=== PATIENT | male | born 1960 | race Caucasian/White ===

== ENCOUNTER 2025-01-29 16:12 | Observation (INO) | payer OTHER, SELFPAY ==
[2025-01-29] VITALS (11 sets, daily range): BP systolic 126–146; BP diastolic 72–85; BMI 26.7; BMI 26.0
--- NOTE | 2025-01-29 10:27 | ED.GENMED ---
History of Present Illness
General
Chief Complaint: Headache
Source: patient
Exam Limitations: none
Time Seen by Provider: 01/29/25 10:05
Nursing documentation reviewed up to this point in time: agreed with
History of Present Illness
History of Present Illness:
64-year-old male with a history of newly diagnosed hyperlipidemia presents for headache that was noticed after he woke up this morning at 6:30 AM. Patient says he noticed it soon after waking up but had not gotten out of bed yet. It was mild 3 out
of 10 pain. [place] like a throbbing or dull headache. It was mostly left-sided behind his eye into his scalpf/frontal region and in the back of his head.
He may have had a little bit of nausea but that was brief. He has had a little bit of congestion feeling in his left maxillary sinus region. He is otherwise not having any cold symptoms. Patient does not get headaches usually so this was unusual.
He did take 2 Advil at 7:30 AM which has not changed his headache. It is currently a 5 out of 10. He was able to exercise on the elliptical and lifts weights without it feeling worse but it did not go away and that is why he is here. Patient's
noticed that hit the vein on his forehead looks like it was sticking out however he is not having any tenderness to this region, there is no blurred vision, scalp sensitivity, fatigue with chewing. Patient has not had a fever. He has no
numbness tingling or weakness in his face arms or legs. Patient has had his shingles vaccine but never had shingles. There is no family history of a brain aneurysm. He is not having any positional changes with this headache for dizziness
Past History
Past History
ED Past Medical History: Hypercholesterolemia
ED Past Surgical History: None
Social History
Tobacco: Non-smoker
Alcohol: Occasional
Drug: None
Personal:
Living: with family
Employment: Employed
Review of Systems
Review of Systems
Allergies reviewed?: Yes
All Other Systems: Not applicable
Phy Exam
Physical Exam
Physical Exam:
GENERAL: Alert , in no apparent distress
HEAD: NCAT
There is a lateral frontal vein that is slightly prominent which is completely nontender but above the vein there is a few small erythematous papules that are also not tender just anterior to the scalp line
EYE: pupils equal and reactive, no nystagmus, no photophobia
NECK: Supple,full rom, nontender
ENT: o/p clr, mmm.
CARDIAC: Regular rate and rhythm . no edema
LUNGS: Clear breath sounds bilaterally, no acute respiratory distress, no wheezes/rales/rhonchi
ABDOMEN: Soft, without focal tenderness, no r/g, no cvat
NEUROLOGICAL: Alert and orientedx 4, cn intact, no facial asymmetry, 5/5 strength in UE/LE, sensation intact, romberg neg, ambulates without assistance, neg pronator drift
SKIN: Warm and dry, skin intact.
MUSCULOSKELETAL: No edema, well perfused.
PSYCH: Normal and appropriate interaction.
Course
Orders/Labs/Results
Orders:
Orders
01/29/25 10:24
0.9% Sodium Chloride 500 ml [Nss] 500 ml IV BOLUS
Diphenhydramine [Benadryl] 25 mg IV NOW STA
01/29/25 10:25
CT Head W/o Iv Contrast Urgent
Comment:
Reason For Exam: headache left sided;
01/29/25 10:31
C-Reactive Protein Urgent
Comment: ADD
COVID-19 Antigen Urgent
Source: Nasal Swab
Complete Blood Count/With Diff Urgent
Comprehensive Metabolic Panel Urgent
Erythrocyte Sed Rate Urgent
Free T4 Urgent
Lyme Progressive Routine
Comment: ADD
Magnesium Urgent
Comment: ADD
TSH Urgent
Influenza A+B Rapid Molecular Urgent
[place] Source: Nasal Swab
Specimen Description:
01/29/25 10:45
Metoclopramide [Reglan] 10 mg 0.9% Sodium Chloride 50 ml [Nss] 50 ml IV NOW
01/29/25 11:52
CT Head & Neck Angio W/wo IV Urgent
Comment:
Reason For Exam: L
01/29/25 11:54
Add On- LAB Urgent
Tests Added?: crp, magnesium, lyme progressive
01/29/25 13:17
Consult Neurology [NEUROLOGY CONSULT] Urgent
Consulting Provider: Margarette Rees
Was physician already notified: Yes
01/29/25 13:28
Add On- LAB Urgent
Tests Added?: TSH reflex t4
01/29/25 13:53
Add On- LAB Routine
Comments:: Please add to today's labs or draw as routine
Tests Added?: TSH, free T4, magnesium, CRP
01/29/25 14:58
Ketorolac [Toradol] 15 mg IV NOW STA
01/29/25 14:59
Aspirin 325 mg PO NOW STA
01/29/25 15:56
Admit/Transfer Patient As Directed
Co-Sign Provider:
Level of Care: Observation services
Assign to:: Medical/Surgical
Physician / Group: Walker Covington
Diagnosis: hypoplasia of right vertebral artery, headache
PRN Pain Medication Management As Directed
May give lesser potent ordered pain med per pt: Yes
preference::
Protocol:: Medication orders for pain may be administered in a
manner that supports deferring to patient preference
when the pt is:
- Requesting an ordered lesser potent pain medication.
Least to most potent pain medications are defined
as: acetaminophen < NSAID < tramadol < opioids
(morphine, oxycodone, hydromorphone).
- Requesting a lesser dose of the same medication IF
ORDERED.
- Requesting a less intrusive route of administration
if both routes are prescribed by the provider (PO <
IV).
01/29/25 15:57
Code Status As Directed
Resuscitation Status: Full Code
Abnormal Lab Results
01/29/25
10:31
RBC 4.57 L 10^6/uL
(4.70-6.10)
Absolute Lymphs (auto) 1.0 L 10^3/uL
(1.2-3.4)
Neutrophils % 80.2 H %
(42.2-75.2)
Lymphocytes % 12.9 L %
(20.5-51.1)
BUN 23 H mg/dl
(9-20)
Glucose 116 H mg/dl
(70-99)
Total Bilirubin 1.7 H mg/dl
(0.2-1.3)
01/29/25 10:31
01/29/25 10:31
Vital Signs
Initial and Last Documented VS:
Initial Vital Signs
Temp Pulse Resp BP Pulse Ox
36.6 C 66 18 146/82 96
01/29/25 09:30 01/29/25 09:30 01/29/25 09:30 01/29/25 09:30 01/29/25 09:30
Last Documented Vital Signs
Temp Pulse Resp BP Pulse Ox
36.6 C 65 16 135/78 98
01/29/25 09:30 01/29/25 16:00 01/29/25 16:00 01/29/25 16:00 01/29/25 16:00
MDM/Problems Addressed
MDM/Problems Addressed:
64 y/o M newly dx coronary calcium study showing plaques so he is on statin 1 mo ago
otherwise healthy
woke up 630 am and soon after felt mild L sided headache, dull, around left eye and L forehead/yazdanism and occiput
maxium 5/10 pain, no associated symptoms
doesn't usually get headaches
no URI sxs
no scalp tenderness but noticed a swollen vein in his L forehead, no tenderness
no vision changes
took motrin and exercised, but pain not improved so he came in
well appearing
neuro intact
i do see a slightly enlarged L forehead vein without tendneress
there may be 2 papules int he forehead/scalp hair line but i can't convince myself it's shingles
sed rate 4
CT:
There is no CT evidence for acute transcortical infarct. There is a 6 mm chronic infarct in the left cerebellar hemisphere. There is a mild amount of low attenuation throughout the subcortical and periventricular white matter of both cerebral
hemispheres. 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 The left intracranial vertebral artery is tortuous causing mild compression on the ventral aspect of the medulla.
d/w dr. rees from neuro
recommemdned CTA which showed again the stenosis
he also has a segment in his R cerebral artery that is narrow
pt's headache unlikely to be related to this
incidentlly thyroid mass seen, pt is aware of this, had it biopsied and it is goiter
neurologist recommended admission, mri, asa, no plaivx
*Critical Care Note
Total Time (30-74mins, 75-104mins- exclusive of procedures): Not Applicable
ED Attending Note
-
Portions of this chart may have been created with voice recognition software.� Occasional wrong word or��sound alike� substitutions may have occurred due to the inherent limitations of voice recognition software.
Discharge Plan
Departure
Patient Disposition: Admit
Date of Disposition: 01/29/25
Time of Disposition: 14:50
Admit to: Telemetry
Presentation/result/management discussed w/ accepting MD/DO: Hospitalist
Condition: Fair
Covid-19: Not Applicable
Discharge Problem:
Headache, Stenosis of right vertebral artery
Interventions
Interventions:
*Risk Screen - Suicide Last Done: 01/29/25 09:30
*General Assessment Last Done: 01/29/25 09:30
*Neglect/Abuse Screening Last Done: 01/29/25 09:30
*ED- Fall Risk Assessment Last Done: 01/29/25 09:52
*ED COVID-19 Vaccine History Last Done: 01/29/25 09:52
ED- Neurological Assessment Last Done: 01/29/25 14:07
[2025-01-29 10:48] LABS: % Basophils 0.4 % (0-2); % Eosinophils 0.6 % (0-6); % Immature Granulocytes 0.3 % (0-0.5); % Lymphocytes 12.9 % (20.5-51.1); % Monocytes 5.6 % (1.7-9.3); % Neutrophils 80.2 % (42.2-75.2); Absolute Eosinophils 0.1 10^3/uL (0-0.7); Absolute Monocytes 0.5 10^3/uL (0.1-0.6); Absolute Neutrophils 6.4 10^3/uL (1.4-6.5); Hematocrit 40.4 % (39.0-52.0); Mean Corp Hgb Conc. 34.7 g/dL (33.0-37.0); Mean Corpuscular Hgb 30.6 pg (27.0-31.0); Mean Corpuscular Volume 88.4 fL (80.0-94.0); Mean Platelet Volume 9.4 fL (7.4-10.4); Nucleated Red Blood Cells % 0 % (-); Platelet Count 227 10^3/uL (130-400); Red Blood Cell Count 4.57 10^6/uL (4.70-6.10); Red Cell Dist. Width 13.1 % (11.5-14.5)
[2025-01-29 11:01] LABS: ALT (SGPT) 43 U/L (0-50); AST (SGOT) 28 U/L (17-59); Alkaline Phosphatase 77 U/L (38-126); Blood Urea Nitrogen 23 mg/dl (9-20); Calcium 9.4 mg/dl (8.4-10.2); Carbon Dioxide 26 mmol/L (22-30); Estimated Creatinine Clearance 95 ml/min; Glucose 116 mg/dl (70-99); Potassium 4.6 mmol/L (3.5-5.1); Sodium 136 mmol/L (135-145); Total Bilirubin 1.7 mg/dl (0.2-1.3); Total Protein 6.6 g/dl (6.3-8.2); eGFR > 60.00
[2025-01-29] MEDS: NSS 500 IV (11:17)
[2025-01-29] MEDS: BENADRYL 25 MG IV (11:17)
[2025-01-29] MEDS: REGLAN 52 MG IV (11:18)
[2025-01-29 11:20] LABS: Erythrocyte Sed Rate 4 mm/hour (0-20)
[2025-01-29 11:45] LABS: COVID-19 Antigen Negative (Negative)
[2025-01-29 11:50] LABS: Chloride 106 mmol/L (98-107)
--- NOTE | 2025-01-29 13:48 | CON.NEURO ---
Consultation
Order
Date of Consultation: 01/29/25
Requesting Provider: Jennifer Payne PA-C
Reason for Consult: Headache
Neurology Consultation Note.
HPI: This is a 64-year-old man who presented to [facility] on 01/29/2025 with headache.
According to the patient he woke up with mild to moderate nonpositional left retro-orbital dull headache. No associated anomic symptoms, head trauma, fever, diplopia, tinnitus, nausea, motor or sensory deficits.
The patient denied having jaw pain, ear pain, recent dental work or excessive caffeine use. Mr. Sanders reportedly took ibuprofen with no improvement prompting him to seek medical care. Mr. Whately recalls transient aphasia in his 30s that he had
unremarkable brain MRI for. No recently discontinued medications. The patient recently started taking Lipitor approximately 3 weeks ago.
ER VS: 146/82, 66, afebrile
EKG: Pending
PDMP: None
Labs: Glucose�116, total bili�1.7, normal sodium, WBCs, absolute neutrophil count�80.2%, normal ESR, negative SARS-CoV-[address] head wo contrast�chronic left cerebellar infarct, mild atrophy
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
PMH: DLP, left thyroid nodule
PSH:R TKA, thyroid biopsy
SH:; retired computer operations manager; non-smoker, drinks 3 beers or glasses of wine per week with dinner
FH: Father�coronary artery disease, mother in her 90s.
All:NKDA
ROS: Constitutional: Negative. Negative for chills, fever and unexpected weight change.
HENT: Negative for ear pain, hearing loss, tinnitus and trouble swallowing.
Eyes: Negative. Negative for photophobia, pain and visual disturbance.
Respiratory: Negative for cough, choking and shortness of breath.
Cardiovascular: Negative for chest pain, palpitations and leg swelling.
Gastrointestinal: Negative for abdominal pain and vomiting.
Endocrine: Negative. Negative for cold intolerance.
Genitourinary: Negative for dysuria, flank pain and urgency.
Musculoskeletal: Negative for back pain, gait problem, neck pain and neck stiffness.
Skin: Negative for rash.
Allergic/Immunologic: Negative. Negative for immunocompromised state.
Neurological: Positive for headache
Psychiatric/Behavioral: Negative for behavioral problems, confusion and hallucinations.
General: Well developed. In no acute distress.
Cardio: Regular rate and rhythm without murmur. Extremities are without cyanosis or edema.
Neuro:
Mental Status: Alert, oriented to person, place, and date. Normal attention and recall. Good fund of knowledge. Follows complex requests across the midline. Comprehension, naming, and repetition intact. Immediate and delayed recall 3/3.
Cranial Nerves: Pupils are equally round and reactive to light. EOMs full. Visual el full to confrontation. No ptosis. No nystagmus. V1-V3 intact to light touch and pinprick bilaterally, symmetric. Face symmetric. Normal hearing AU. The
palate elevated well. SCMs and traps 5/5. Tongue midline. No dysarthria.
Motor: Normal bulk and tone. No pronator or arm drift. Strength 5/5 throughout. No clonus.
Reflexes: 2+ throughout the upper extremities and knees. 2/2 in AJs. Plantar responses flexor bilaterally.
Sensory: Normal vibration and JPS.
Coordination: No dysmetria or tremor.
Gait: deferred
Assessment and Plan:
I. Probable secondary headache
II. Chronic cerebellar infarct
III. Left thyroid mass, status post biopsy (reportedly benign)
-Telemetry monitoring
-EKG
-Please check TFTs, magnesium, CRP,
-Start aspirin 81 mg once a day
-IV Toradol 30 mg, Reglan 10 mg, Benadryl 25 mg Q8h PRN for moderate to severe headache.
-Brain MRI without starla
-DVT prophylaxis
I personally reviewed all radiology and labs along with past medical records pertinent to current medical problems. Total time spent in patient care is 60 minutes.
Thank you for allowing us to participate in the care of this patient. We will continue to follow. Please do not hesitate to contact us with any questions or concerns.
Subjective/Objective
Subjective Data
Date of Service: January 29, 2025
Objective Data
Vital Signs
Temp Pulse Resp BP Pulse Ox
36.6 C 67 16 126/72 97
01/29/25 09:30 01/29/25 10:03 01/29/25 10:03 01/29/25 12:00 01/29/25 12:00
Lab Results
01/29/25 10:31
01/29/25 10:31
Sodium 136 mmol/L (135-145) 01/29/25 10:31
Potassium 4.6 mmol/L (3.5-5.1) 01/29/25 10:31
BUN 23 mg/dl (9-20) H 01/29/25 10:31
Glucose 116 mg/dl (70-99) H 01/29/25 10:31
Calcium 9.4 mg/dl (8.4-10.2) 01/29/25 10:31
Patient Allergies
No Known Allergies Allergy (Unverified 01/29/25 09:56)
Medications
-
Home Medications
�Medication �Instructions �Recorded
Lipitor 1 tab PO DAILY 01/29/25
Vitamin C 1 tab PO DAILY 01/29/25
multivitamin 1 tab PO DAILY 01/29/25
Vital Signs and Labs
-
Vital Signs and Labs:
Vital Signs
Temp Pulse Resp BP Pulse Ox
36.6 C 67 16 126/72 97
01/29/25 09:30 01/29/25 10:03 01/29/25 10:03 01/29/25 12:00 01/29/25 12:00
Lab Results
01/29/25 10:31
01/29/25 10:31
Sodium 136 mmol/L (135-145) 01/29/25 10:31
Potassium 4.6 mmol/L (3.5-5.1) 01/29/25 10:31
BUN 23 mg/dl (9-20) H 01/29/25 10:31
Glucose 116 mg/dl (70-99) H 01/29/25 10:31
Calcium 9.4 mg/dl (8.4-10.2) 01/29/25 10:31
Home Medications
-
Home Medications
Lipitor 1 tab PO DAILY 01/29/25
Vitamin C 1 tab PO DAILY 01/29/25
multivitamin 1 tab PO DAILY 01/29/25
[2025-01-29] MEDS: ASPIRIN 325 MG PO (15:10)
[2025-01-29] MEDS: TORADOL 15 MG IV (15:11)
--- NOTE | 2025-01-29 15:14 | HPS.HSE ---
Family Physician
-
Family Physician: NOT KNOW UNKNOWN - PT DOES
Chief Complaint
-
headache
History of Present Illness
Patient is a 64-year-old male with past medical history significant for hyperlipidemia is presenting to [facility] ED for evaluation of headache that was noticeable when he woke this morning at 0630 at the level of 5 out of 10 with little
improvement or worsening. Patient reports being able to complete morning exercise routine on elliptical and lifting weights without any significant change in headache. He describes headache as a dull aching pressure in the more frontal/left temporal
area. He current reports discomfort as a 1/10 after treatment in ED. Patient denies any recent dizziness, confusion, fever, chills, cough, shortness of breath or chest pain.
Medical History
Past Medical History
Past Medical History: Reports Other
Additional Past Medical History:
hyperlipidemia
Past Surgical History: Reports Other
Additional Past Surgical History:
right total knee replacement
bilateral meniscus repairs
Social History
Tobacco: Non-smoker
Alcohol: Occasional
Drug: None
Personal:
Living: With Family
Employment: Retired
Family History
Family History: Other (Father: CAD, Sister: CAD; Brother: CAD and GI cancer)
Allergies / Home Medications
Allergies
Allergy/AdvReac Type Severity Reaction Status Date / Time
No Known Allergies Allergy Unverified 01/29/25 09:56
Home Medications
ascorbic acid (vitamin C) 500 mg tablet (Vitamin C) 500 mg PO DAILY 01/29/25
atorvastatin 20 mg tablet (Lipitor) 20 mg PO DAILY 01/29/25
ibuprofen 200 mg tablet (Advil) 400 mg PO BIDPRN PRN headache 01/29/25
therapeutic multivitamin 1 tab PO DAILY 01/29/25
Allergies reflects when Allergies were last updated in [facility].
Home Medications with original date entered in [facility]
Allergy/Medication List:
Allergies
Allergy/AdvReac Type Severity Reaction Status Date / Time
No Known Allergies Allergy Unverified 01/29/25 09:56
Home Medications
ascorbic acid (vitamin C) 500 mg tablet (Vitamin C) 500 mg PO DAILY 01/29/25
atorvastatin 20 mg tablet (Lipitor) 20 mg PO DAILY 01/29/25
ibuprofen 200 mg tablet (Advil) 400 mg PO BIDPRN PRN headache 01/29/25
therapeutic multivitamin 1 tab PO DAILY 01/29/25
Review of Systems
-
History Source: Patient
Constitutional: Reports No Symptoms
EENT: Reports No Symptoms
Respiratory: Reports No Symptoms
Cardiac: Reports No Symptoms
Abdomen/GI: Reports No Symptoms
: Reports No Symptoms
Musculoskeletal: Reports No Symptoms
Skin: Reports No Symptoms
Neurological: Reports No Symptoms and Headache
Endocrine: Reports No Symptoms
Hematologic/Lymphatic: Reports No Symptoms
Psych: Reports No Symptoms
Physical Exam
Vital Signs
Vital Signs
Temp Pulse Resp BP Pulse Ox
97.9 F 54 18 131/79 98
01/29/25 09:30 01/29/25 14:00 01/29/25 14:00 01/29/25 14:00 01/29/25 13:53
Physical Exam
General: Well Developed, Well Nourished, No Apparent Distress, Comfortable and Conversant
HEENT: NormoCephalic, Moist mucous membranes, Atraumatic, PERRLA, [place]ett Conjunctivae, Nose Appears Normal and Ears Appear Normal
Respiratory: Clear and Non Labored Respirations
Cardiac: S1/S2 and Regular Rhythm; No Murmur, Rub or Gallop
GI: Soft, Non Tender, Non Distended and Normal Bowel Sounds; No Organomegaly
Rectal: Deferred by Provider
Genito-urinary: Deferred by me
Musculoskeletal: No Clubbing, No Cyanosis and No Edema
Skin: Warm and IV/Catheter Site; No Rash
Neuro: Awake, Alert, AO x 3, No Motor Deficits, Nonfocal/grossly intact, Cranial Nerves Intact, No Sensory Deficits and DTR's Intact & Symmetrical
Psych: Calm and Intact Judgment/Insight
Laboratory Results
-
01/29/25 10:31
01/29/25 10:31
Laboratory Results
Total Bilirubin 1.7 mg/dl (0.2-1.3) H 01/29/25 10:31
AST 28 U/L (17-59) 01/29/25 10:31
ALT 43 U/L (0-50) 01/29/25 10:31
Alkaline Phosphatase 77 U/L (38-126) 01/29/25 10:31
Data Reviewed
-
CT Scan: Report Reviewed by me (Head CT: 1.No CT evidence for acute intracranial hemorrhage or transcortical infarct. 2.6 mm chronic infarct in the left cerebellar hemisphere. 3.Mild white matter leukoaraiosis in both cerebral hemispheres. 4.Mild
diffuse cerebral and cerebellar volume loss.) and Other (Head/Neck CTA: see report )
Lab Data: Labs Reviewed by me
Impression/Plan
-
IMPRESSION/PLAN:
#headache
#hypoplasia of right vertebral artery
Head CT: 1. No CT evidence for acute intracranial hemorrhage or transcortical infarct.
2. 6 mm chronic infarct in the left cerebellar hemisphere.
3. Mild white matter leukoaraiosis in both cerebral hemispheres.
4. Mild diffuse cerebral and cerebellar volume loss.
NECK CTA: 1. Moderate discogenic degenerative disease at C5/C6 with a disc-osteophyte complex causing mild spinal cord compression and central canal stenosis.
2. LARGE 4.2 cm LEFT LOWER POLE THYROID MASS.
3. Severe hypoplasia of the right vertebral artery.
HEAD CTA: 1. 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
2. Mild tortuosity of the left vertebral artery causing mild compression on the medulla.
3. 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
4. 5 mm chronic infarct in the left cerebellar hemisphere.
5. Mild diffuse cerebral and cerebellar volume loss.
6. 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
- Admit to telemetry
- Consult Neurology
- MRI in morning
#hyperlipidemia
- continue atorvastatin
Code status: Full code
DVT prophylaxis: Lovenox sq
[2025-01-29 15:44] LABS: C-Reactive Protein < 5.00 mg/L (0.0-10.00)
[2025-01-29 16:00] LABS: Free T4 1.07 ng/dl (0.78-2.19)
--- NOTE | 2025-01-29 16:18 | W.PN.UPDATE ---
Update Note
Progress Note Update
This note serves as an addendum to the H&P by Amirah Chris on 01/29/25.
History of Presenting Illness
64-year-old male with past medical history significant for hyperlipidemia is presented for evaluation of headache that was noticeable when he woke this morning at 0630 5/10 without any change. Patient reports being able to complete morning exercise
routine on elliptical and lifting weights without any significant change in headache. He took Advil without relief. He describes headache as a dull aching pressure in the more frontal/left temporal area. Patient denied any recent dizziness,
numbness, tingling, weakness, confusion, fever, chills, cough, shortness of breath or chest pain.
Vital Signs
AFVSS
Physical Exam
General: Not in acute distress
HEENT: Normocephalic, Moist mucous membranes, Atraumatic
Respiratory: Clear to Auscultation Bilaterally
Cardiac: S1/S2 and Regular Rhythm
GI: Soft, Non Tender, Non Distended and Normal Bowel Sounds
Musculoskeletal: No Cyanosis and No Edema
Skin: Warm. Dry.
Neuro: Awake, Alert, Oriented x 3, No Motor Deficits, Nonfocal/grossly intact, Cranial Nerves Intact, No Sensory Deficits
Psych: Calm and Intact Judgment/Insight
Assessment Plan
#Headache
#Hypoplasia of right vertebral artery
#Chronic Cerebellar Infarct
- Admit to telemetry. EKG.
- Consult Neurology
- MRI of the Brain
- Start aspirin 81 mg once a day
- Medications for headache relief: IV Toradol 30 mg, Reglan 10 mg, Benadryl 25 mg Q8h PRN for moderate to severe headache.
- Check TFTs, Magnesium and CRP
#Hyperlipidemia
- Continue atorvastatin
Code Status: Full code
DVT Prophylaxis: Lovenox subq
[2025-01-29] MEDS: LOVENOX 40 MG SC (18:55)
--- NOTE | 2025-01-29 19:25 | PTCARENOTE ---
Patient recieved from ED. AAOx3, VSS. Denies pain or discomfort. Oriented to unit. Plan of care ongoing.
--- NOTE | 2025-01-29 22:00 | PTCARENOTE ---
States that all symptoms bringing him to hosp have resolved completely.
[2025-01-30 03:39] VITALS: BP 130/74
[2025-01-30 07:39] LABS: Hematocrit 41.3 % (39.0-52.0); Hemoglobin 14.1 g/dL (13.0-18.0); Mean Corp Hgb Conc. 34.1 g/dL (33.0-37.0); Mean Corpuscular Hgb 30.5 pg (27.0-31.0); Mean Corpuscular Volume 89.2 fL (80.0-94.0); Mean Platelet Volume 9.6 fL (7.4-10.4); Platelet Count 228 10^3/uL (130-400); Red Blood Cell Count 4.63 10^6/uL (4.70-6.10); Red Cell Dist. Width 13.1 % (11.5-14.5); White Blood Cell Count 5.4 10^3/uL (4.8-10.8)
[2025-01-30 08:07] LABS: Blood Urea Nitrogen 15 mg/dl (9-20); Carbon Dioxide 23 mmol/L (22-30); Chloride 110 mmol/L (98-107); Estimated Creatinine Clearance 107 ml/min; Glucose 93 mg/dl (70-99); Potassium 4.3 mmol/L (3.5-5.1); Sodium 142 mmol/L (135-145); eGFR > 60.00
--- NOTE | 2025-01-30 08:14 | W.PN.NEURO.1 ---
Today's Communication / Plan
-
.
Subjective/Objective
Subjective Data
Date of Service: January 30, 2025
Neurology follow-up note
Mr. Whatley states that he has been headache free since yesterday. No reports no change in vision, strength and sensation.
Brain MRI showed mild generalized atrophy. No T2/FLAIR hyperintensity around the left cerebellar signal abnormality. Mild to moderate patchy mucosal thickening of the ethmoid sinuses. Mild peripheral mucosal thickening of the inferior maxillary
sinuses. Minimal mucosal thickening of the sphenoid sinuses.
Mr. Sanders did not require any symptomatic therapy since admission for headache management.
TFTs, magnesium, ESR�normal.
PMH: DLP, left thyroid nodule
PSH: R TKA, thyroid biopsy
SH:; retired computer mechanic; non-smoker, drinks 3 beers or glasses of wine per week with dinner
FH: Father�coronary artery disease, mother in her 90s.
All:NKDA
ROS: Constitutional: Negative. Negative for chills, fever and unexpected weight change.
HENT: Negative for ear pain, hearing loss, tinnitus and trouble swallowing.
Eyes: Negative. Negative for photophobia, pain and visual disturbance.
Respiratory: Negative for cough, choking and shortness of breath.
Cardiovascular: Negative for chest pain, palpitations and leg swelling.
Gastrointestinal: Negative for abdominal pain and vomiting.
Endocrine: Negative. Negative for cold intolerance.
Genitourinary: Negative for dysuria, flank pain and urgency.
Musculoskeletal: Negative for back pain, gait problem, neck pain and neck stiffness.
Skin: Negative for rash.
Allergic/Immunologic: Negative. Negative for immunocompromised state.
Neurological: Positive for headache
Psychiatric/Behavioral: Negative for behavioral problems, confusion and hallucinations.
General: Well developed. In no acute distress.
Cardio: Regular rate and rhythm without murmur. Extremities are without cyanosis or edema.
Neuro:
Mental Status: Alert, oriented to person, place, and date. Normal attention and recall. Good fund of knowledge. Follows complex requests across the midline. Comprehension, naming, and repetition intact. Immediate and delayed recall 3/3.
Cranial Nerves: Pupils are equally round and reactive to light. EOMs full. Visual el full to confrontation. No ptosis. No nystagmus. V1-V3 intact to light touch and pinprick bilaterally, symmetric. Face symmetric. Normal hearing AU. The
palate elevated well. SCMs and traps 5/5. Tongue midline. No dysarthria.
Motor: Normal bulk and tone. No pronator or arm drift. Strength 5/5 throughout. No clonus.
Reflexes: 2+ throughout the upper extremities and knees. 2/2 in AJs. Plantar responses flexor bilaterally.
Sensory: Normal vibration and JPS.
Coordination: No dysmetria or tremor.
Gait: deferred
Assessment and Plan:
I. Probable secondary headache
II. Ethmoid, sphenoid and maxillary sinus disease.
III. Brain atrophy
-Avoid medications known to cause headache as a side effect
-Outpatient ENT consult
-Tylenol 500 mg every 8 hour as needed
-May consider outpatient neuropsychological evaluation
-OP neurology follow-up
I personally reviewed all radiology and labs along with past medical records pertinent to current medical problems. Total time spent in patient care is 36 minutes.
Thank you for allowing us to participate in the care of this patient. Please do not hesitate to contact us with any questions or concerns.
Objective Data
Vital Signs
Temp Pulse Resp BP Pulse Ox
36.6 C 52 18 130/74 96
01/30/25 03:39 01/30/25 03:39 01/30/25 03:39 01/30/25 03:39 01/30/25 03:39
Lab Results
01/30/25 06:47
01/30/25 06:47
Sodium 142 mmol/L (135-145) 01/30/25 06:47
Potassium 4.3 mmol/L (3.5-5.1) 01/30/25 06:47
BUN 15 mg/dl (9-20) 01/30/25 06:47
Glucose 93 mg/dl (70-99) 01/30/25 06:47
Calcium 9.0 mg/dl (8.4-10.2) 01/30/25 06:47
Patient Allergies
No Known Allergies Allergy (Unverified 01/29/25 09:56)
Vital Signs and Labs
-
Vital Signs and Labs:
Vital Signs
Temp Pulse Resp BP Pulse Ox
36.7 C 57 18 134/77 97
01/30/25 08:40 01/30/25 08:40 01/30/25 08:40 01/30/25 08:40 01/30/25 08:40
Lab Results
01/30/25 06:47
01/30/25 06:47
Sodium 142 mmol/L (135-145) 01/30/25 06:47
Potassium 4.3 mmol/L (3.5-5.1) 01/30/25 06:47
BUN 15 mg/dl (9-20) 01/30/25 06:47
Glucose 93 mg/dl (70-99) 01/30/25 06:47
Calcium 9.0 mg/dl (8.4-10.2) 01/30/25 06:47
Medications
-
Medications:
Generic Name Dose Route Start Last Admin
Trade Name Freq PRN Reason Stop Dose Admin
Acetaminophen 650 mg 01/29/25 18:10
Acetaminophen 325 Mg Tablet PO 02/26/25 18:09
Q4HPRN PRN
mild pain/POP/temp> 100.4F
Atorvastatin Calcium 20 mg 01/30/25 08:00 01/30/25 08:20
Atorvastatin (Lipitor) 20 Mg Tablet PO 02/27/25 07:59 20 mg
DAILY MARCUS Administration
Enoxaparin Sodium 40 mg 01/29/25 18:10 01/29/25 18:55
Enoxaparin Sodium 40 Mg/0.4 Ml Syringe SC 02/26/25 18:09 40 mg
QPM MARCUS Administration
Sodium Chloride 0 flush 01/29/25 19:00
Sodium Chloride 0.9% (Flush) Syringe IV 02/26/25 18:59
PER PROTOCOL MARCUS
Home Medications
-
Home Medications
ascorbic acid (vitamin C) 500 mg tablet (Vitamin C) 500 mg PO DAILY Supplement 01/29/25
atorvastatin 20 mg tablet (Lipitor) 20 mg PO DAILY High Cholesterol 01/29/25
ibuprofen 200 mg tablet (Advil) 400 mg PO BIDPRN PRN headache 01/29/25
therapeutic multivitamin 1 tab PO DAILY Supplement 01/29/25
[2025-01-30] MEDS: LIPITOR 20 MG PO (08:20)
--- NOTE | 2025-01-30 08:20 | W.PN.HOSP.TC ---
Today's Communication/Plan
-
Discharge today
Assessment / Plan
Assessment / Plan
Physical Exam
General: Not in acute distress
HEENT: Normocephalic, Moist mucous membranes, Atraumatic
Respiratory: Clear to Auscultation Bilaterally
Cardiac: S1/S2 and Regular Rhythm
GI: Soft, Non Tender, Non Distended and Normal Bowel Sounds
Musculoskeletal: No Cyanosis and No Edema
Skin: Warm. Dry.
Neuro: Awake, Alert, Oriented x 3, No Motor Deficits, Nonfocal/grossly intact, Cranial Nerves Intact, No Sensory Deficits
Psych: Calm and Intact Judgment/Insight
Assessment Plan
#Likely Secondary Headache
#Ethmoid, sphenoid and maxillary sinus disease.
#Hypoplasia of right vertebral artery
#Chronic Cerebellar Infarct
#Brain Atrophy
- Consult Neurology
- MRI of the Brain: mild generalized atrophy. No T2/FLAIR hyperintensity around the left cerebellar signal abnormality. Mild to moderate patchy mucosal thickening of the ethmoid sinuses. Mild peripheral mucosal thickening of the inferior maxillary
sinuses.
Minimal mucosal thickening of the sphenoid sinuses.
- Avoid medications known to cause headache as a side effect
- Outpatient ENT consult
- Tylenol 500 mg every 8 hour prn headache
- Neurology follow-up outpatient
#Hyperlipidemia
- Continue Atorvastatin
Code Status: Full code
DVT Prophylaxis: Lovenox subq
More than 30 minutes spent in discharge including
Final examination of the patient
Summarizing hospital stay
Instructions for continuing care to all relevant caregivers
Preparation of discharge records, prescriptions, and referral forms
Total time spent (in minutes): 39
Anticipated Discharge: Today
Subjective/Interval History
-
Date of Service: January 30, 2025
Patient was seen and examined. He denied any more headache, numbness, tingling or any other complaints.
Objective Data
-
Labs:
Laboratory Results
01/30/25
06:47
WBC 5.4
Hgb 14.1
Hct 41.3
Plt Count 228
Sodium 142
Potassium 4.3
Chloride 110 H
Carbon Dioxide 23
BUN 15
Creatinine 0.8
Glucose 93
Calcium 9.0
Vital Signs:
Vital Signs
Temp Pulse Resp BP Pulse Ox
97.9 F 52 18 130/74 96
01/30/25 03:39 01/30/25 03:39 01/30/25 03:39 01/30/25 03:39 01/30/25 03:39
I&O
01/29/25 01/30/25 01/31/25
06:59 06:59 06:59
Intake Total 480 / 480
Balance 480 / 480
[2025-01-30 08:40] VITALS: BP 134/77
--- NOTE | 2025-01-30 10:37 | CM ---
Patient seen bedside w/ spouse, initial assessment completed. Patient is a 64-year-old male with past medical history significant for hyperlipidemia is presenting to [facility] ED for evaluation of headache that was noticeable when he woke
this morning at 0630 at the level of 5 out of 10 with little improvement or worsening.
Patient reports that he lives w/ spouse in [place]- 3 steps to enter the home. Patient is independent w/ ambulating and ADLs, no device or DME required or identified. Denies SNF hx, Patient engaged in OP therapy in the past after knee replacement.
Patient had home PT in the past following knee replacement but doesn't recall provider.
Address, point of contact and insurance verified
PCP: Dr. Slater
Pharmacy: [facility] [place]
Patient is currently admitted as OBS. OOBS form reviewed, patient given copy, copy placed on chart
CM consulted for advanced directive paperwork. Patient stated he and spouse already have bashir and paperwork. Declined need at this time.
Patient stated he may d/c today
Plan: Home; no needs
[2025-01-30 11:15] VITALS: BP 119/67
[2025-01-31 15:02] LABS: Lyme Antibody Screen, EIA Negative (Negative)
== END 2025-01-30 14:37 | disposition home or self-care (01) ==
LOC: 4 EAST ACU 16:12
PROVIDERS: Nurse Practitioner Family; Physician Assistant; ADMITTING PHYSICIAN Hospitalist; CONSULT PHYSICIAN Psychiatry & Neurology Neurology; EMERGENCY PHYSICIAN Emergency Medicine
DX: J34.89 Other specified disorders of nose and nasal sinuses (principal); R51.9 Headache, unspecified; Z11.52 Encounter for screening for COVID-19; Z86.73 Personal history of transient ischemic attack (TIA), and cerebral infarction without residual deficits; Z79.899 Other long term (current) drug therapy; G31.9 Degenerative disease of nervous system, unspecified
CPT/HCPCS: 70450; 70496; 70498; 70551; 80048; 80053; 83735; 84439; 84443; 85025; 85027; 85652; 86140; 86618; 87502; 87811; 93005; 96361; 96374; 96375; 99284; Q9967